=== PATIENT | male | born 1985 | race American Indian/Alaskan Native ===

== ENCOUNTER 2017-04-24 16:02 | Emergency (ER) | payer OTHER ==
[2017-04-24 16:29] VITALS: BMI 29.8
[2017-04-24 16:33] VITALS: TEMP 98.6
[2017-04-24] MEDS ORDERED: Albuterol-Ipratrop 3 mg / 0.5 (3 ml) UD IH STA (17:24)
--- NOTE | 2017-04-24 17:27 | ED PDOC ---
Arrival/HPI - General Historian: Patient - History of Present Illness Time/Duration: < week Symptom Onset: Gradual Symptom Course: Worsening Activities at Onset: Rest - General Chief Complaint: Cough, Cold, Congestion Time Seen by Provider: 04/24/17 16:08 - History of Present Illness Narrative History of Present Illness (Text): This patient is a 31 year old male with no significant past medical history who presents complaining of generalized body aches, headache, nasal congestion, productive cough and generalized weakness. Patient stated that these symptoms started on Friday. He went to [facility] ([facility] [place] [facility]) and was told that there is no medications that would treat for his condition. Patient received CXR at [facility] and was told it was normal. They also swabbed his throat but patient is unsure of what the results of that test were. Today, patient states his symptoms have worsened. He had a 101.1 fever today which prompted him to come to the ED. Additional symptoms include nausea and non-bloody, non- bilous vomiting. Patient denies any dizziness, changes in vision, SOB, chest pain, hemoptysis, diarrhea, constipation or urinary symptoms. He does complain of mild abdominal pain. (Juan F Lemon) Past Medical History - Provider Review Nursing Documentation Reviewed: Yes - Infectious Disease Hx of Infectious Diseases: None - Psychiatric Hx Substance Use: No - Anesthesia Hx Anesthesia: No Hx Anesthesia Reactions: No Family/Social History - Physician Review Nursing Documentation Reviewed: Yes Family/Social History: Unknown Family HX Smoking Status: Current Some Days Smoker Hx Alcohol Use: Yes Frequency of alcohol use: Socially Hx Substance Use: No Allergies/Home Meds Allergies/Adverse Reactions: Allergies amoxicillin Allergy (Verified 04/24/17 17:08) URTICARIA chocolate flavor Allergy (Verified 04/24/17 17:08) URTICARIA ORANGE Allergy (Verified 04/24/17 17:08) URTICARIA tomato Allergy (Verified 04/24/17 17:08) URTICARIA Review of Systems - Physician Review All systems were reviewed & negative as marked: Yes (As per HPI) - Review of Systems Respiratory: Cough, Sputum. absent: SOB Cardiovascular: Normal. absent: Chest Pain, Palpitations Physical Exam Vital Signs Reviewed: Yes Temperature: Afebrile Blood Pressure: Normal Pulse: Tachycardic Respiratory Rate: Normal Appearance: Positive for: Ill-Appearing Pain Distress: Mild Mental Status: Positive for: Alert and Oriented X 3 - Systems Exam Head: Present: Atraumatic, Normocephalic Pupils: Present: PERRL Conjunctiva: Present: Normal Ears: Present: Normal Mouth: Present: Moist Mucous Membranes Nose (External): Present: Atraumatic Neck: Present: Normal Range of Motion Respiratory/Chest: Present: Clear to Auscultation. No: Wheezes, Rales, Rhonchi Cardiovascular: Present: Normal S1, S2, Tachycardic. No: Murmurs, Irregular Rhythm Abdomen: Present: Normal Bowel Sounds. No: Tenderness, Distention, Peritoneal Signs, Rebound, Guarding, McBurney's Point Tender, Rovsing's Sign Present, Mass/ Organomegaly Upper Extremity: Present: Normal Inspection, Capillary Refill < 2s Lower Extremity: Present: Normal Inspection. No: Edema Neurological: Present: GCS=15, CN II-XII Intact, Speech Normal Skin: Present: Warm, Dry, Normal Color Lymphatic: Present: Cervical Adenopathy (Mild (left sided)) Psychiatric: Present: Alert, Oriented x 3 Vital Signs Temp Pulse Resp BP Pulse Ox 04/24/17 16:29 98.6 F 101 H 20 138/84 97 Medical Decision Making Reassessment Condition: Re-examined, Improving,but remains with symptoms ED Course and Treatment: 31 year old male with no significant PMHx presents with URI symptoms. DDX: viral URI. likely Influenza virus --Rapid Flu --Toradol --Duonebs ---Reassess and Disposition Disposition: Patients symptoms have improved post Toradol and breathing treatment. Patient is stable for discharge. He will go home with Ventolin and Ibuprofen. Patient has been told to follow up with his PMD. He has been told about [facility] neighborhood clinic as an option to follow up. Patient has also been advised to return to the ED if his symptoms do not resolve or worsen. Patient is agreeable to plan and medications. (Juan F Lemon) 04/24/17 18:43 31 yo old male presents with URI symptoms. Agree with resident history and physical, assessment and plan. Lungs: CTA b/l; no w/r/r Abdomen: Soft, NT ND BSx4 Patient treated with albuterol which improved that sensation of wanting to cough ever time he takes a deep breathe. Lungs clear still on reevaluation. Abdomen soft and not tender. Patient is tolerating PO fluids. Patient was advised to follow up with Primary care doctor or the clinic and advised to return to the ED if symptoms worsen or any other concern. (Israel Solis) - Lab Interpretations Lab Results: Lab Results 04/24/17 17:40: Influenza Typ A,B (EIA) Negative for flu a/b - Medication Orders Current Medication Orders: Discontinued Medications Albuterol/Ipratropium (Duoneb 3 Mg/0.5 Mg (3 Ml) Ud) 3 ml IH STAT STA Stop: 04/24/17 17:25 Last Admin: 04/24/17 17:55 Dose: 3 ml Ketorolac Tromethamine (Toradol) 30 mg IM STAT STA Stop: 04/24/17 17:22 Last Admin: 04/24/17 17:56 Dose: 30 mg MAR Pain Assessment Document 04/24/17 17:56 (Rec: 04/24/17 17:57 [id number]) Pain Reassessment Is this a pain reassessment? Yes Sleep Is patient sleeping during reassessment? No Presence of Pain Presence of Pain Yes Pain Scale Used Pain Scale Used Numeric Location Left, Right or Bilateral Bilateral Upper or Lower Lower Pain Location Body Site Back Description Description Constant Intensity of Pain at present 10 Alleviating Factors/Management Medication Techniques Alleviating Factors Medication IM Administration Charges Document 04/24/17 17:56 (Rec: 04/24/17 17:57 [id number]) Injection Site MAR Injection Site Left Deltoid Charges for Administration # of IM Administrations 1 Disposition/Present on Arrival - Present on Arrival Any Indicators Present on Arrival: No History of DVT/PE: No History of Uncontrolled Diabetes: No Urinary Catheter: No History of Decub. Ulcer: No History Surgical Site Infection Following: None - Disposition Have Diagnosis and Disposition been Completed?: Yes Disposition Time: 18:39 Patient Plan: Discharge - Disposition Diagnosis: Viral syndrome Disposition: HOME/ ROUTINE Patient Problems: Current Active Problems Problem Status Onset Viral syndrome Acute Condition: STABLE Discharge Instructions (ExitCare): Viral Syndrome (ED), Abdominal Pain (ED) Additional Instructions: Mr Manuel, thank you for letting us take care of you today. Your provider was Dr. Solis. You were treated for Viral Syndrome, Abdominal Pain. The emergency medical care you received today was directed at your acute symptoms. If you were prescribed any medication, please fill it and take as directed. It may take several days for your symptoms to resolve. Return to the Emergency Department if your symptoms worsen, do not improve, or if you have any other problems. Please contact your doctor or call one of the physicians/clinics you have been referred to that are listed on the Patient Visit Information form that is included in your discharge packet. Bring any paperwork you were given at discharge with you along with any medications you are taking to your follow up visit. Our treatment cannot replace ongoing medical care by a primary care provider (PCP) outside of the emergency department. Thank you for allowing the [facility] team to be part of your care today. If you had an X-Ray or CT scan: A Radiologist will review the ED reading if any change in treatment is needed we will contact you. If you had a blood, urine, or wound culture: It will take several days for the results, if any change in treatment is needed we will contact you. If you had an STI test: It will take 48 hours for the results. Please call after 1 week if you have not heard back. Prescriptions: Albuterol HFA [Ventolin HFA 90 mcg/actuation (8 g)] 2 puff IH Q4 #1 puff Ibuprofen [Motrin] 600 mg PO Q6 PRN #30 tab PRN Reason: Pain, Moderate (4-7) Referrals: [facility] at [facility] [place] [Outside] - Follow up with primary Forms: [employer] (Romanian), WORK NOTE
[2017-04-24 19:14] VITALS: BP 132/80; PULSE 90; RESP 18; O2SAT 98
== END 2017-04-24 18:42 | disposition home or self-care (01) ==
LOC: ED 16:02
DX: B34.9 Viral infection, unspecified (principal)
CPT/HCPCS: 87804; 96372; 99283; J1885